=== PATIENT | male | born 1995 | race African-American/Black ===

== ENCOUNTER 2023-09-14 04:14 | Emergency (ER) | payer OTHER, SELFPAY ==
[2023-09-14] MEDS: LORazepam 2 MG/ML VIAL IM (04:24)
[2023-09-14 04:34] VITALS: BP 146/95; PULSE 50; O2SAT 100; BMI 30.3
[2023-09-14 04:34] LABS: MANUAL DIFF FLAG NO
[2023-09-14 04:35] LABS: Basophils Percent Auto 0.2 % (0-2); Eosinophils Absolute Auto 0.2 X10*3/uL (0.0-0.4); Eosinophils Percent Auto 2.6 % (0-4); Hematocrit 40.2 % (42.0-52.0); Hemoglobin 13.4 g/dl (14.0-18.0); Imm Gran Abs Auto 0.02 X10*3/uL (0.00-0.03); Imm Gran Pct Auto 0.2 % (0.0-0.4); Lymphocytes Absolute Auto 2.9 X10*3/uL (1.2-4.9); Mean Corpuscular HGB Conc 33.3 g/dl (31.0-36.0); Mean Corpuscular Hemoglobin 28.9 pg (27.0-33.0); Mean Corpuscular Volume 86.6 fL (80.0-98.0); Mean Platelet Volume 10.8 fL (9.4-12.4); Monocytes Absolute Auto 0.9 X10*3/uL (0.1-1.2); Neutrophils Absolute Auto 4.6 x10*3/uL (2.0-8.3); Platelet Count 225 X10*3/uL (160-400); Red Blood Count 4.64 X10*6/uL (4.60-5.80); Red Cell Distribution Width 13.1 % (11.0-16.0); White Blood Count 8.6 X10*3/uL (4.8-10.8)
[2023-09-14 04:46] LABS: Lactic Acid 1.5 mmol/L (0.5-2.0)
[2023-09-14 04:48] VITALS: BP 140/90; PULSE 70; O2SAT 100
[2023-09-14 04:53] LABS: Alanine Aminotransferase 23 U/L (0-40); Alkaline Phosphatase 62 U/L (39-117); Anion Gap 14 (12-20); Aspartate Amino Transferase 19 U/L (5-37); Bilirubin Total 0.4 mg/dL (0.0-1.0); Blood Urea Nitrogen 17 mg/dL (9-16); Calcium 8.9 mg/dL (8.4-10.2); Carbon Dioxide 22 mmol/L (22-29); Chloride 105 mmol/L (96-108); Creatinine Clr Calc Pharmacy 143.9; Estimated Glomerular Filt Rate > 60; Ethanol < 10 mg/dL; Glucose Random 99 mg/dL (60-115); Potassium 4.3 mmol/L (3.3-5.1); Sodium 137 mmol/L (135-145); Total Protein 7.4 g/dL (6.5-8.0)
[2023-09-14] MEDS: LORazepam 2 MG/ML VIAL 1 MG IVPUSH (05:17)
[2023-09-14 06:24] VITALS: BP 121/58; PULSE 55; RESP 16; TEMP 36.6; O2SAT 100
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
[2023-09-14 07:00] VITALS: BP 108/53; PULSE 74; RESP 20; TEMP 36.5; O2SAT 100
--- NOTE | 2023-09-14 07:00 | PC.NURSE ---
PT IS SLEEPING RESP EVEN AND UNLABORED.
--- NOTE | 2023-09-14 07:12 | MHC.EDTECH ---
morning vitals taken and documented. warm blanket given and call light placed within reach. Pt aware we are still in need of a urine sample, pt stated he will give it when he is able. urinal placed at the bedside. RN aware
--- NOTE | 2023-09-14 07:57 | PC.NURSE ---
PT IS AWAKE AND ON [facility] [place] [facility] PHONE WITH HIS MOTHER. PT IS AWARE OF D/C HOME.
[2023-09-14 08:00] VITALS: BP 111/49; PULSE 74; RESP 20; TEMP 36.5; O2SAT 100
== END 2023-09-14 08:18 | disposition home or self-care (01) ==
PROVIDERS: Emergency Provider Emergency Medicine Emergency Medical Services
DX: G40.409 Other generalized epilepsy and epileptic syndromes, not intractable, without status epilepticus (principal); Z79.899 Other long term (current) drug therapy
CPT/HCPCS: 36415; 80053; 80307; 82550; 83605; 85025; 96372; 96374; 99284; J2060